=== PATIENT | male | born 1995 | race Caucasian/White ===

== ENCOUNTER 2024-02-12 05:54 | Emergency (ER) | payer OTHER, SELFPAY ==
[2024-02-12 06:00] VITALS: BP 127/75; PULSE 78; TEMP 36.8; O2SAT 98; BMI 25.1
--- NOTE | 2024-02-12 06:21 | ED.GENADUL1 ---
HPI HPI - General Adult General Chief complaint: Skin/Abscess/Foreign Body Stated complaint: SKIN GROWTH, FACE Time Seen by Provider: 02/12/24 06:02 Source: patient Mode of arrival: walk-in Limitations: no limitations History of Present Illness HPI narrative: 28-year-old male to the emergency department chief complaint of area of swelling on his right lateral neck. He reports that he has had a cyst in this area for some time. He also deals with acne. He thought it was a pimple so they tried to squeeze it and drain it however he thinks it popped underneath his skin causing further pain and inflammation. He denies any fever, sweats, chills. Otherwise at his baseline health. No recent antibiotics. Related Data Previous Rx's ?Medication ?Instructions ?Recorded doxycycline monohydrate 100 mg 100 mg PO BID 7 days #14 caps 02/12/24 capsule ibuprofen 800 mg tablet 800 mg PO Q8H PRN pain #20 tabs 02/12/24 Allergies Allergy/AdvReac Type Severity Reaction Status Date / Time Unable to Assess Allergy Verified 02/12/24 06:05 Opioid HPI Opioid Management Most Recent Opioid Data: Last Pain Scale 4 02/12/24 06:09 Last ED Pain Assessment 02/12/24 06:08 Review of Systems ROS Status of ROS 10 or more systems reviewed and unremarkable except as noted in history and below Exam Narrative Exam Narrative: VITALS: I have reviewed the triage vital signs. GENERAL: Well developed, well appearing adult in no acute distress. NEURO: Alert and oriented. Moves all extremities. Face is symmetric and expressive. EYES: PERRL. No scleral icterus or conjunctival injection. No discharge. HENT: Normocephalic, atraumatic. Hearing is grossly intact. Nares grossly patent and without discharge. Mucous membranes moist. dime sized cyst at the apex of the posterior triangle with mild erythema. NECK: No JVD. Patient moves neck without restriction. SKIN: Warm and dry. Normal turgor. No rash or lesions appreciated. PSYCH: Mood, affect, and interaction is appropriate to the setting. Constitutional Vital Signs, click to edit/add: Last Vital Signs Temp 98.2 F 02/12/24 06:00 Pulse 78 02/12/24 06:00 Resp 16 02/12/24 06:00 BP 127/75 02/12/24 06:00 Pulse Ox 98 02/12/24 06:00 O2 Del Method Room Air 02/12/24 06:00 Course Vital Signs Vital signs: Vital Signs Temperature 98.2 F 02/12/24 06:00 Pulse Rate 78 02/12/24 06:00 Respiratory Rate 16 02/12/24 06:00 Blood Pressure 127/75 02/12/24 06:00 Pulse Oximetry 98 02/12/24 06:00 Oxygen Delivery Method Room Air 02/12/24 06:00 Temperature 98.2 F 02/12/24 06:00 Pulse Rate 78 02/12/24 06:00 Respiratory Rate 16 02/12/24 06:00 Blood Pressure 127/75 02/12/24 06:00 Pulse Oximetry 98 02/12/24 06:00 Oxygen Delivery Method Room Air 02/12/24 06:00 Medical Decision Making MDM Narrative Medical decision making narrative: 28-year-old male with history of pain and sebaceous cyst to the emergency department when he moves his cyst. Vital stable, the patient is afebrile. Exam is consistent with an inflamed/infected sebaceous cyst. Given the location is not amenable to ED I&D, this would also be a temporizing measure as it appears to be a sebaceous cyst. He is given ENT for proper excision. Doxycycline as prescribed. Compresses at home. Work note given. Ibuprofen prescribed. Return precautions were discussed. All questions were answered. The patient was discharged home. Discharge Plan Discharge Stand Alone Forms: Work/School Release, Portal Instructions Chief Complaint: Skin/Abscess/Foreign Body Clinical Impression: Sebaceous cyst Patient Disposition: Home, Self-Care Condition: Good Mode of Transportation: Private Vehicle Prescriptions / Home Meds: New ibuprofen 800 mg tablet 800 mg PO Q8H PRN (Reason: pain) Qty: 20 0RF doxycycline monohydrate 100 mg capsule 100 mg PO BID 7 Days Qty: 14 0RF Print Language: Austrian Instructions: Cyst (ED) Additional Instructions: Call the office of your primary care doctor to arrange for follow-up within the above-stated timeframe. Your ED visit was focused on your acute issue and does not replace primary care. You should review your labs, imaging, and diagnoses from this ED visit with your primary care physician. There may be non-emergent/ incidental findings that need further evaluation. You should review your vital signs including blood pressure with your PCP. If you were prescribed medications you should discuss possible side-effects and drug interactions with your pharmacist. Call 911 or go to the nearest Emergency Department if you develop any new or worsening symptoms. Referrals: Rosario Layne MD [Physician] - 1 week (Called to discuss excision of sebaceous cyst)
== END 2024-02-12 06:32 | disposition home or self-care (01) ==
PROVIDERS: Emergency Provider Student in an Organized Health Care Education/Training Program; PCP Family Medicine
DX: L72.3 Sebaceous cyst (principal); L70.9 Acne, unspecified
CPT/HCPCS: 99283